=== PATIENT | female | born 1970 | race Caucasian/White ===

== ENCOUNTER 2018-02-09 07:30 | Day surgery (SDC) | payer OTHER ==
[~2018-02-09 07:30] MED LIST: FENTAnyl 50 MCG/ML VIAL
[2018-02-09] MEDS ORDERED: LIDOCAINE 4% SOLUTION 50 ML BTL (09:57)
[2018-02-09] MEDS ORDERED: MIDAZOLAM 1 MG/ML 2 ML INJ ×2 (09:57)
== END 2018-02-09 11:01 | disposition home or self-care (01) ==
LOC: GIL 07:30
DX: K21.9 Gastro-esophageal reflux disease without esophagitis (principal); K31.7 Polyp of stomach and duodenum
CPT/HCPCS: 43239; 84703; 88305; 88312